=== PATIENT | male | born 1965 | race Caucasian/White ===

== ENCOUNTER 2018-10-05 23:07 | Emergency (ER) | payer BC ==
[~2018-10-05] VITALS: Ht 177.8 cm; Wt 86.2 kg
[2018-10-06] MEDS ORDERED: RANI75TA89 PO (00:15)
[2018-10-06] MEDS ORDERED: HYDR-3164 PO (00:30)
[2018-10-06] MEDS ORDERED: ORPH100T PO (00:30)
--- NOTE | 2018-10-06 00:30 | PHYS DOC ---
Past Medical History Past Medical History: Bronchitis Past Surgical History B/L hand reconstruction Hernia Smoking: Cigarettes Alcohol Use: None Drug Use: None Adult General Chief Complaint Chief Complaint: SHOUDLER HPI HPI Patient is a 53 year old male who presents to the ED with right shoulder pain. Pain started 3 weeks ago with no inciting event or trauma as a minimal dull ache in his right shoulder but has since gradually worsened to extreme pain that is preventing him from sleeping, especially in the last 5 days. The pain is now mostly in his right shoulder and right shoulder blade region and radiates down the arm posteriorly to the elbow and then anteriorly through the rest of the arm and into digits 1 through 3. He rates the the pain 10/10 stabbing pain. Movement makes the pain better and rest makes the pain worse. He states he notices the pain more at night when he tries to sleep. He was seen in urgent care recently and was diagnosed with a pinched nerve. They gave him cyclobenzaprine and prednisone which did not help. He is currently taking 4-6 Aleve to help with the pain, and he takes this 2-3 times a day. Review of Systems Review of Systems Constitutional: Denies fever or chills [] Eyes: Denies change in visual acuity, redness, or eye pain [] HENT: Denies nasal congestion or sore throat [] Respiratory: Denies cough or shortness of breath [] Cardiovascular: Denies chest pain or palpitations. GI: Denies abdominal pain, nausea, vomiting, bloody stools or diarrhea [] : Denies dysuria or hematuria [] Musculoskeletal: Admits right shoulder pain. Denies back pain Integument: Denies rash or skin lesions [] Neurologic: Denies headache, focal weakness or sensory changes [] Complete systems were reviewed and found to be within normal limits, except as documented in this note. Current Medications Current Medications Current Medications Medications (Trade) Dose Ordered Sig/[place] Start Time Stop Time Status Last Admin Dose Admin Acetaminophen/ Hydrocodone Bitart (Lortab 5/325) 2 tab 1X ONCE 10/06/18 00:45 10/06/18 00:46 DC 10/06/18 00:46 2 TAB Ketorolac Tromethamine (Toradol 30mg Vial) 30 mg 1X ONCE 10/06/18 00:45 10/06/18 00:46 DC 10/06/18 00:44 30 MG Allergies Allergies Allergies Coded Allergies Type Severity Reaction Last Updated Verified No Known Drug Allergies 10/06/18 No Physical Exam Physical Exam Constitutional: Well developed, well nourished, no acute distress, non-toxic appearance. [] HENT: Normocephalic, atraumatic, bilateral external ears normal, oropharynx moist, no oral exudates, nose normal. [] Eyes: EOMI, conjunctiva normal, no discharge. [] Neck: Normal range of motion, no tenderness, supple, no stridor. [] Cardiovascular:Heart rate regular rhythm, no murmur [] Lungs & Thorax: Bilateral breath sounds clear to auscultation [] Abdomen: Bowel sounds normal, soft, no tenderness, no masses, no pulsatile masses. [] Skin: Warm, dry, no erythema, no rash. [] Back: No tenderness, no CVA tenderness. [] Extremities: Tender to palpation in right trap, deltoid, and medial to right shoulder blade. Negative Avilez's hyperabduction test. Negative Phalen's test. No cyanosis, no clubbing, ROM intact, no edema. [] Neurologic: Alert and oriented, normal motor function, normal sensory function, no focal deficits noted. [] Psychologic: Affect normal, judgement normal, mood normal. [] Current Patient Data Vital Signs Vital Signs Date Time Temp Pulse Resp B/P (MAP) Pulse Ox O2 Delivery O2 Flow Rate FiO2 10/06/18 00:48 81 19 151/77 (101) 100 10/05/18 23:33 98.0 Room Air 98.0 EKG EKG [] Radiology/Procedures Radiology/Procedures [] Course & Med Decision Making Course & Med Decision Making Pertinent Labs and Imaging studies reviewed. (See chart for details) Patient is a 53-year-old male who presents to the ED with progressive right shoulder pain. Given lack of trauma a scan is not indicated and patient agrees. Discharging patient home with Sage and Tamara. Instructed to follow-up with PCP within 1-2 weeks. Dragon Disclaimer Dragon Disclaimer This electronic medical record was generated, in whole or in part, using a voice recognition dictation system. Departure Departure Impression: Primary Impression: Cervical radiculopathy Disposition: HOME, SELF-CARE Condition: STABLE Referrals: NO PCP (PCP) KENTON VAZQUEZ MD Patient Instructions: Cervical Radiculopathy, [id number] Scripts Orphenadrine Citrate (ORPHENADRINE CITRATE) 100 Mg Tablet.er 100 MG PO BID PRN for MUSCLE PAIN, #14 Prov: AFSHAN LAL DO 10/06/18 Hydrocodone/Apap 5-325 (NORCO 5-325 TABLET) 1 Each Tablet 1 TAB PO PRN Q6HRS PRN for PAIN, #14 TAB 0 Refills Prov: AFSHAN LAL DO 10/06/18 AFSHAN LAL DO Oct 06, 2018 00:30
[2018-10-06] MEDS ORDERED: KETOROLAC 30 MG/ML VIAL. IM ONE (00:45)
[2018-10-06] MEDS ORDERED: HYDROcodone/APAP 5/325MG 1 TAB TABLET PO ONE (00:45)
[2018-10-06 00:48] VITALS: BP 151/77
== END 2018-10-06 00:45 | disposition home or self-care (01) ==
LOC: ER 23:07
DX: M54.12 Radiculopathy, cervical region (principal); M25.511 Pain in right shoulder; F17.210 Nicotine dependence, cigarettes, uncomplicated
CPT/HCPCS: 96372; 99283; J1885